=== PATIENT | male | born 1990 | race Two or more races ===

== ENCOUNTER → 2021-03-08 | Outpatient (CLI) | payer OTHER ==
[2021-03-08 18:28] LABS: BASO # 0.1 10^3/uL (0.0-0.2); BASO % 0.7 % (0.0-1.0); EOS # 0.1 10^3/uL (0.0-0.5); EOS % 1.9 % (0.0-3.0); HEMATOCRIT 47.6 % (42.0-52.0); LYMPH # 2.3 10^3/uL (1.5-5.0); LYMPH % 31.1 % (24.0-44.0); MEAN CORPUSCULAR HEMOGLOBIN 30.6 pg (27.0-33.0); MEAN CORPUSCULAR HGB CONC 33.6 g/dl (32.0-36.5); MONO # 0.5 10^3/uL (0.0-0.8); MONO % 6.9 % (2.0-8.0); NEUTROPHILS # 4.5 10^3/uL (1.5-8.5); NEUTROPHILS % 59.1 % (36.0-66.0); PLATELET COUNT, AUTOMATED 282 10^3/uL (150-450); RED BLOOD COUNT 5.23 10^6/uL (4.30-6.10); WHITE BLOOD COUNT 7.5 10^3/uL (4.0-10.0)
[2021-03-08 18:57] LABS: ALBUMIN 3.9 GM/DL (3.2-5.2); ALT/SGPT 40 U/L (12-78); BILIRUBIN,TOTAL 0.4 MG/DL (0.2-1.0); BLOOD UREA NITROGEN 12 MG/DL (7-18); CALCIUM LEVEL 9.1 MG/DL (8.5-10.1); CARBON DIOXIDE LEVEL 30 MEQ/L (21-32); CHLORIDE LEVEL 105 MEQ/L (98-107); CREATININE FOR GFR 1.09 MG/DL (0.70-1.30); GLOMERULAR FILTRATION RATE > 60.0 (>60); GLUCOSE, FASTING 62 MG/DL (70-100); SODIUM LEVEL 139 MEQ/L (136-145); TOTAL PROTEIN 7.2 GM/DL (6.4-8.2)
== END ==
LOC: M PLALAB 15:06
PROVIDERS: ATTEND Psychiatry & Neurology Neurology
DX: R56.9 Unspecified convulsions (principal)

== ENCOUNTER 2021-05-22 05:24 | Emergency (ER) | payer OTHER ==
--- OUTSIDE RECORDS SUMMARY | 2021-05-22 05:29 | CCD | Continuity of Care Document ---
Author Author Vanessa TRACY M.D. Organization Unknown Address [address] [place] [address] Phone [phone] Problems Active Problems Provider Date Seizure Fatou Tracy M.D. Onset: 11/28/2020 Social History Type Date Description Comments Sex Unknown Tobacco Use Start: Unknown Patient has never smoked Allergies, Adverse Reactions, Alerts Description No Known Drug Allergies Medications Active Medications SIG Qnty Indications Ordering Provide r Date Levetiracetam 750mg Tablets 1 by mouth twice a day Unknown Immunizations Description No Information Available Vital Signs Date Vital Result Comment 03/08/2021 2:40pm Respiratory Rate 12 /min Height 66 inches 5'6" Weight 160.00 lb BMI (Body Mass Index) 25.8 kg/m2 [place] Body Weight 142 lb 11/28/2020 8:29am Respiratory Rate 12 /min Height 66 inches 5'6" Weight 160.00 lb BMI (Body Mass Index) 25.8 kg/m2 [place] Body Weight 142 lb Results Description No Information Available Procedures Date Code Description Status 03/08/2021 79559 Office/Outpatient Established Mo d MDM 30-39 Min Completed 01/13/2021 27025 MRI Brain W/O Contrast Completed 01/13/2021 50823 MRI Brain W/O Contrast Completed 01/12/2021 22592 EEG Recording Awake & Asleep Com pleted 01/12/2021 78927 EEG Recording Awake & Asleep Com pleted 11/28/2020 08909 Office Consultation Level 5 Comp leted Medical Devices Description No Information Available Encounters Type Date Location Provider Dx Diagnosis Office Visit 03/08/2021 2:30p Main office - [place] Fatou huitron M.D. G40.309 Gen idiopathic epilepsy, not intractable , w/o stat epi Office Visit 11/28/2020 8:00a Main office - [place] Fatou huitron M.D. 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 Plan of Treatment No Information Available Functional Status Description No Information Available Mental Status Description No Information Available Referrals Refer to Dr Reason for Referral Status Appt Date Fatou Tracy M.D. Created [address] [place] [address] [phone] Fatou Tracy M.D. Created [address] [place] [address] [phone]
--- OUTSIDE RECORDS SUMMARY | 2021-05-22 05:29 | CCD ---
Author Author [facility] Organization [facility] Address Unknown Phone Unavailable Care Team Providers Care Branch Operations Coordinator Name Role Phone Mae Pisano MD Unavailable Unavailable Mae Pisano MD Unavailable Unavailable Mae Pisano MD Unavailable Unavailable Mae Pisano MD Unavailable Unavailable Mae Pisano MD Unavailable Unavailable Mae Pisano MD Unavailable Unavailable Mae Pisano MD Unavailable Unavailable Mae Pisano MD Unavailable Unavailable Mae Pisano MD Unavailable Unavailable Mae Pisano MD Unavailable Unavailable Mae Pisano MD Unavailable Unavailable Mae Pisano MD Unavailable Unavailable Mae Pisano MD Unavailable Unavailable Mae Pisano MD Unavailable Unavailable Mae Pisano MD Unavailable Unavailable Mae Pisano MD Unavailable Unavailable Mae Pisano MD Unavailable Unavailable Mae Pisano MD Unavailable Unavailable Mae Pisano MD Unavailable Unavailable Mae Pisano MD Unavailable Unavailable Mae Pisano MD Unavailable Unavailable Mae Pisano MD Unavailable Unavailable Mae Pisano MD Unavailable Unavailable Mae Pisano MD Unavailable Unavailable Mae Pisano MD Unavailable Unavailable Mae Pisano MD Unavailable Unavailable Mae Pisano MD Unavailable Unavailable Mae Pisano MD Unavailable Unavailable Mae Pisano MD Unavailable Unavailable Mae Pisano MD Unavailable Unavailable Mae Pisano MD Unavailable Unavailable Mae Pisano MD Unavailable Unavailable Mae Pisano MD Unavailable Unavailable Mae Pisano MD Unavailable Unavailable Mae Pisano MD Unavailable Unavailable Mae Pisano MD Unavailable Unavailable Mae Pisano MD Unavailable Unavailable Mae Pisano MD Unavailable Unavailable Mae Pisano MD Unavailable Unavailable Mae Pisano MD Unavailable Unavailable Mae Pisano MD Unavailable Unavailable Mae Pisano MD Unavailable Unavailable Mae Pisano MD Unavailable Unavailable Mae Pisano MD Unavailable Unavailable Mae Pisano MD Unavailable Unavailable Mae Pisano MD Unavailable Unavailable Mae Pisano MD Unavailable Unavailable Mae Pisano MD Unavailable Unavailable Mae Pisano MD Unavailable Unavailable Mae Pisano MD Unavailable Unavailable Mae Pisano MD Unavailable Unavailable Mae Pisano MD Unavailable Unavailable Mae Pisano MD Unavailable Unavailable Mae Pisano MD Unavailable Unavailable Mae Pisano MD Unavailable Unavailable Mae Pisano MD Unavailable Unavailable Mae Pisano MD Unavailable Unavailable Mae Pisano MD Unavailable Unavailable Mae Pisano MD Unavailable Unavailable Mae Pisano MD Unavailable Unavailable Mae Pisano MD Unavailable Unavailable Mae Pisano MD Unavailable Unavailable Mae Pisano MD Unavailable Unavailable Mae Pisano MD Unavailable Unavailable Mae Pisano MD Unavailable Unavailable Mae Pisano MD Unavailable Unavailable Mae Pisano MD Unavailable Unavailable Mae Pisaon MD Unavailable Unavailable Mae Pisano MD Unavailable Unavailable Mae Pisano MD Unavailable Unavailable Mae Pisano MD Unavailable Unavailable Mae Pisano MD Unavailable Unavailable Mae Pisano MD Unavailable Unavailable Mae Pisano MD Unavailable Unavailable Mae Pisano MD Unavailable Unavailable Mae Pisano MD Unavailable Unavailable Mae Pisano MD Unavailable Unavailable Mae Pisano MD Unavailable Unavailable Mae Pisano MD Unavailable Unavailable Re-disclosure Warning The records that you are about to access may contain information from federally-assisted alcohol or drug abuse programs. If such information is present, then the following federally mandated warning applies: This information has been disclosed to you from records protected by federal confidentiality rules (42 CFR part 2). The federal rules prohibit you from making any further disclosure of this information unless further disclosure is expressly permitted by the written consent of the person to whom it pertains or as otherwise permitted by 42 CFR part 2. A general authorization for the release of medical or other information is NOT sufficient for this purpose. The Federal rules restrict any use of the information to criminally investigate or prosecute any alcohol or drug abuse patient.The records that you are about to access may contain highly sensitive health information, the redisclosure of which is protected by Article 27-F of the [facility] Public Health law. If you continue you may have access to information: Regarding HIV / AIDS; Provided by facilities licensed or operated by the [facility] Office of Mental Health; or Provided by the [facility] Office for People With Developmental Disabilities. If such information is present, then the following [facility] mandated warning applies: This information has been disclosed to you from confidential records which are protected by state law. State law prohibits you from making any further disclosure of this information without the specific written consent of the person to whom it pertains, or as otherwise permitted by law. Any unauthorized further disclosure in violation of state law may result in a fine or long-term sentence or both. A general authorization for the release of medical or other information is NOT sufficient authorization for further disc losure. Encounters Encounter Providers Location Date Indications Data Source(s ) Outpatient Attender: Fatou Pisano MD [facility] 03/08/2021 02:30:00 PM EDT [facility] ([facility] Vasquez) Outpatient Attender: Fatou Pisano MD [facility] 11/28/2020 08:00:00 AM EDT [facility] ([facility] AGUSTIN harrell) Immunizations Vaccine Date Status Description Data Source(s) COVID-19 VACCINE Moderna 01/25/2021 12:00:00 AM EDT completed [facility] Vaccine Series Complete: YESThis Data wa s Submitted to [facility] Via [employer]. COVID-19 VACCINE Moderna 12/16/2020 12:00:00 AM EDT completed [place] Vaccine Series Complete: NOThis Data was Submitted to [facility] Via [employer]. Medications No Information Insurance Providers Payer name Policy type / Coverage type Policy ID Covered libertarian ID Covered libertarian's relationship to ramirez Policy Ramirez Plan Information [facility] [id number] Problems, Conditions, and Diagnoses Code Display Name Description Problem Type Effective Dates Data Source(s) [id number] Seizure Seizure Problem 11/28/2020 12:00:00 AM ED T [facility] ([facility], ) Surgeries/Procedures Procedure Description Date Indications Data Source(s) OFFICE OUTPATIENT VISIT 25 MINUTES 03/08/2021 12:00:00 AM EDT [facility] ([facility], ) MRI BRAIN BRAIN STEM W/O CONTRAST MATERIAL 01/13/2021 12:00:00 AM EDT [facility] ([facility], ) MRI BRAIN BRAIN STEM W/O CONTRAST MATERIAL 01/13/2021 12:00:00 AM EDT [facility] ([facility], ) ELECTROENCEPHALOGRAM W/REC AWAKE&ASLEEP 01/12/2021 12: 00:00 AM EDT [facility] ([facility], ) ELECTROENCEPHALOGRAM W/REC AWAKE&ASLEEP 01/12/2021 12: 00:00 AM EDT [facility] ([facility], ) OFFICE CONSULTATION NEW/ESTAB PATIENT 80 MIN 12:00:00 AM EDT [facility] ([facility], ) Results No Information Social History No Information Vital Signs ID Date Data Source UNK Name Value Range Interpretation Code Description Data Source(s) [place] body weight 142 [lb_av] 142 [lb_av] [facility] ([facility], ) Respiratory rate 12 /min 12 /min [facility] Body height 66 [in_i] 66 [in_i] [facility] ([facility], ) 5'6" Body weight 160.00 [lb_av] 160.00 [lb_av] [facility] ([facility], ) Body mass index (BMI) [Ratio] 25.8 kg/m2 25.8 k g/m2 [facility] Body mass index (BMI) [Ratio] 25.8 kg/m2 25.8 k g/m2 [facility] ([facility]) [place] body weight 142 [lb_av] 142 [lb_av] [facility] ([facility], ) Body weight 160.00 [lb_av] 160.00 [[facility]_av[facility] Respiratory rate 12 /min 12 /min [facility] ( [facility]) Body height 66 [in_i] 66 [in_i] [facility] ([facility]) 5'6"
--- OUTSIDE RECORDS SUMMARY | 2021-05-22 05:29 | CCD | Continuity of Care Document ---
Author Author Vanessa SHAIKH Organization Unknown Address [address] [place] [address] Phone [phone] Problems Active Problems Provider Date Seizure Fatou Pisano M.D. Onset: 11/28/2020 Social History Type Date Description Comments Sex Unknown Tobacco Use Start: Unknown Patient has never smoked Allergies, Adverse Reactions, Alerts Description No Known Drug Allergies Medications Active Medications SIG Qnty Indications Ordering Provide r Date Levetiracetam 750mg Tablets 1 by mouth twice a day Unknown Immunizations Description No Information Available Vital Signs Date Vital Result Comment 11/28/2020 8:29am Respiratory Rate 12 /min Height 66 inches 5'6" Weight 160.00 lb BMI (Body Mass Index) 25.8 kg/m2 [place] Body Weight 142 lb Results Description No Information Available Procedures Date Code Description Status 01/13/2021 17408 MRI Brain W/O Contrast Completed 01/13/2021 84647 MRI Brain W/O Contrast Completed 01/12/2021 13594 EEG Recording Awake & Asleep Com pleted 01/12/2021 93635 EEG Recording Awake & Asleep Com pleted 11/28/2020 39291 Office Consultation Level 5 Comp leted Medical Devices Description No Information Available Encounters Type Date Location Provider Dx Diagnosis Office Visit 11/28/2020 8:00a Main office - [place] Fatou huitron M.D. 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 Plan of Treatment Future Appointment(s):* 03/08/2021 2:30 pm - Fatou Pisano M.D. at Main office - [place] Functional Status Description No Information Available Mental Status Description No Information Available Referrals Refer to Reason for Referral Status Appt Date Fatou Pisano M.D. Created [address] [place] [address] [phone] Fatou Pisano M.D. Created [address] [place] [address] [phone]
--- OUTSIDE RECORDS SUMMARY | 2021-05-22 05:29 | CCD | Continuity of Care Document ---
Author Author Vanessa TRACY M.D. Organization Unknown Address [address] [place] [address] Phone [phone] Problems Active Problems Provider Date Seizure Fatou [...] lb BMI (Body Mass Index) 25.8 kg/m2 [place] Body Weight 142 lb 11/28/2020 8:29am Respiratory Rate 12 /min Height 66 inches 5'6" Weight 160.00 lb BMI (Body Mass Index) 25.8 kg/m2 [place] Body Weight 142 lb Results Description No Information Available Procedures Date Code Description Status 01/13/2021 69880 MRI Brain W/O Contrast Completed 01/13/2021 87735 MRI Brain W/O Contrast Completed 01/12/2021 12536 EEG Recording Awake & Asleep Com pleted 01/12/2021 03154 EEG Recording Awake & Asleep Com pleted 11/28/2020 82033 Office Consultation Level 5 Comp leted Medical Devices Description No Information Available Encounters Type Date Location Provider Dx Diagnosis Office Visit 11/28/2020 8:00a Main office - [place] Fatou huitron M.D. G40.309 Gen idiopathic epilepsy, [...] Date Fatou Tracy M.D. Created [address] [place] [address] [phone] Fatou Tracy M.D. Created [address] [place] [address] [phone]
[2021-05-22] MEDS ORDERED: LITH300C PO (05:57)
[2021-05-22 06:29] LABS: BASO # 0.1 10^3/uL (0.0-0.2); BASO % 0.7 % (0.0-1.0); EOS # 0.1 10^3/uL (0.0-0.5); EOS % 1.8 % (0.0-3.0); HEMOGLOBIN 15.7 g/dl (13.5-17.5); LYMPH # 1.2 10^3/uL (1.5-5.0); LYMPH % 16.9 % (24.0-44.0); MEAN CORPUSCULAR HEMOGLOBIN 30.9 pg (27.0-33.0); MEAN CORPUSCULAR HGB CONC 34.9 g/dl (32.0-36.5); MEAN CORPUSCULAR VOLUME 88.6 fl (80.0-96.0); MONO # 0.5 10^3/uL (0.0-0.8); MONO % 6.6 % (2.0-8.0); NEUTROPHILS # 5.3 10^3/uL (1.5-8.5); PLATELET COUNT, AUTOMATED 270 10^3/uL (150-450); RED BLOOD COUNT 5.08 10^6/uL (4.30-6.10); WHITE BLOOD COUNT 7.3 10^3/uL (4.0-10.0)
--- OUTSIDE RECORDS SUMMARY | 2021-05-22 06:46 | CCD ---
Author Author [facility] Organization [facility] Address Unknown Phone Unavailable Care Team Providers Care Raschel Knitting Machine Operator Name Role Phone Mae Pisano MD Unavailable [...] Unavailable Unavailable Mae Pisano MD Unavailable Unavailable Mea Pisano MD Unavailable Unavailable Mae Pisano MD [...] Unavailable Unavailable Mae Pisano MD Unavailable Unavailable aMe Pisano MD Unavailable Unavailable Mae Pisano MD [...] is protected by Article 27-F of the [facility] Public Health law. If you continue you may have access to information: Regarding HIV / AIDS; Provided by facilities licensed or operated by the [facility] Office of Mental Health; or Provided by the [facility] Office for People With Developmental Disabilities. If such information is present, then the following [facility] mandated warning applies: This information has [...] law may result in a fine or fci sentence or both. A general authorization for the release of medical or other information is NOT sufficient authorization for further disc losure. Encounters Encounter Providers Location Date Indications Data Source(s ) Outpatient Attender: Fatou Pisano MD [facility] 03/08/2021 02:30:00 PM EDT [facility] ([facility] Vasquez) Outpatient Attender: Fatou Pisano MD [facility] 11/28/2020 08:00:00 AM EDT [facility] ([facility] AGUSTIN harrell) Immunizations Vaccine Date Status Description Data Source(s) COVID-19 VACCINE Moderna 01/25/2021 12:00:00 AM EDT completed [facility] Vaccine Series Complete: YESThis Data wa s Submitted to [facility] Via [employer]. COVID-19 VACCINE Moderna 12/16/2020 12:00:00 AM EDT completed [place] Vaccine Series Complete: NOThis Data was Submitted to [facility] Via [employer]. Medications No Information Insurance Providers Payer name Policy type / Coverage type Policy ID Covered alliance party ID Covered alliance party's relationship to ramirez Policy Ramirez Plan Information [facility] ACTIVE DUT[facility] [id number] Problems, Conditions, and Diagnoses Code Display Name Description Problem Type Effective Dates Data Source(s) [id number] Seizure Seizure Problem 11/28/2020 12:00:00 AM ED T [facility] ([facility], ) Surgeries/Procedures Procedure Description Date Indications Data Source(s) OFFICE OUTPATIENT VISIT 25 MINUTES 03/08/2021 12:00:00 AM EDT [facility] ([facility], ) MRI BRAIN BRAIN STEM W/O CONTRAST MATERIAL 01/13/2021 12:00:00 AM EDT [facility] ([facility], ) MRI BRAIN BRAIN STEM W/O CONTRAST MATERIAL 01/13/2021 12:00:00 AM EDT [facility] ([facility], ) ELECTROENCEPHALOGRAM W/REC AWAKE&ASLEEP 01/12/2021 12: 00:00 AM EDT [facility] ([facility], ) ELECTROENCEPHALOGRAM W/REC AWAKE&ASLEEP 01/12/2021 12: 00:00 AM EDT [facility] ([facility], ) OFFICE CONSULTATION NEW/ESTAB PATIENT 80 MIN 12:00:00 AM EDT [facility] ([facility], ) Results No Information Social History No Information Vital Signs ID Date Data Source UNK Name Value Range Interpretation Code Description Data Source(s) [place] body weight 142 [lb_av] 142 [lb_av] [facility] ([facility] ) Respiratory rate 12 /min 12 /min [facility] Body height 66 [in_i] 66 [in_i] [facility] ([facility], ) 5'6" Body weight 160.00 [lb_av] 160.00 [lb_av] [facility] ([facility], ) Body mass index (BMI) [Ratio] 25.8 kg/m2 25.8 k g/m2 [facility] Body mass index (BMI) [Ratio] 25.8 kg/m2 25.8 k g/m2 [facility] ([facility]) [place] body weight 142 [lb_av] 142 [lb_av] [facility] ([facility], ) Body weight 160.00 [lb_av] 160.00 [facility]lb_av[facility] Respiratory rate 12 /min 12 /min [facility] ( [facility]) Body height 66 [in_i] 66 [in_i] [facility] ([facility]) 5'6"
[2021-05-22 06:59] LABS: ALBUMIN 3.6 GM/DL (3.2-5.2); ALT/SGPT 34 U/L (12-78); BILIRUBIN,DIRECT 0.1 MG/DL (0.0-0.2); BILIRUBIN,TOTAL 0.5 MG/DL (0.2-1.0); BLOOD UREA NITROGEN 10 MG/DL (7-18); CALCIUM LEVEL 9.1 MG/DL (8.5-10.1); CARBON DIOXIDE LEVEL 27 MEQ/L (21-32); CHLORIDE LEVEL 107 MEQ/L (98-107); CREATININE FOR GFR 1.27 MG/DL (0.70-1.30); GLOMERULAR FILTRATION RATE > 60.0 (>60); GLUCOSE, FASTING 107 MG/DL (70-100); LIPASE 75 U/L (73-393); LITHIUM LEVEL < 0.20 MEQ/L (0.60-1.20); POTASSIUM SERUM 4.7 MEQ/L (3.5-5.1); SODIUM LEVEL 140 MEQ/L (136-145); TOTAL PROTEIN 7.1 GM/DL (6.4-8.2)
[2021-05-22] MEDS ORDERED: KEPP1TAB PO (07:14)
[2021-05-22] MEDS ORDERED: levETIRAcetam INJection 1,000 MG in D5W 100 ML IV ONE (07:15)
--- NOTE | 2021-05-22 07:39 | REPVR ---
PROCEDURE INFORMATION: Exam: CT Head Without Contrast Exam date and time: 05/22/2021 7:28 AM Age: 31 years old Clinical indication: Other: Seizure unwiteness TECHNIQUE: Imaging protocol: Computed tomography of the head without contrast. Radiation optimization: All CT scans at this facility use at least one of these dose optimization techniques: automated exposure control; mA and/or kV adjustment per patient size (includes targeted exams where dose is matched to clinical indication); or iterative reconstruction. COMPARISON: No relevant prior studies available. FINDINGS: Brain: Normal. No hemorrhage. Unremarkable white matter. No mass effect. Cerebral ventricles: No ventriculomegaly. Paranasal sinuses: There is mucoperiosteal reaction in the ethmoid air cells. Mastoid air cells: Visualized mastoid air cells are well aerated. Bones/joints: No acute fracture. Soft tissues: Unremarkable. IMPRESSION: 1. Normal noncontrast CT of the brain. 2. If in etiology of a seizure disorder is not determined, a follow-up nonemergent MRI is recommended. Electronically signed by: Wilfred Pepe On 05/22/2021 07:38:41 AM
[2021-05-22] MEDS ORDERED: DEPA500T2 PO (08:52)
[2021-05-22 09:07] VITALS: BP 130/87
--- NOTE | 2021-05-22 19:27 | ECGEPIP ---
[facility] - ED Test Date: 2021-05-22 Pat Name: ORACIO PARKINSON Department: Room: - Gender: Male Safety Companion: JAYLENE : 1990 Requested By: TOMMY Berry Order Number: [id number] Reading MD: Timur Dela Cruz Measurements Intervals [place] Rate: 96 P: 61 UT: 154 QRS: 62 QRSD: 76 T: 37 QT: 342 QTc: 432 Interpretive Statements Normal sinus rhythm Delayed R wave progression Nonspecific ST T wave changes No prior ECG for comparison Electronically Signed on 05-22-2021 19:26:49 EST by Timur Dela Cruz
== END 2021-05-22 09:09 | disposition home or self-care (01) ==
LOC: M ED 05:24
DX: R56.9 Unspecified convulsions (principal)
CPT/HCPCS: 70450; 80048; 80076; 80178; 83605; 83690; 85025; 93005; 93041; 96374; 99284; J1953

== ENCOUNTER → 2022-01-22 | Outpatient (CLI) | payer OTHER ==
[~2022-01-22] MED LIST: DEPA500T2 PO; KEPP1TAB PO; LITH300C PO
[2022-01-22 17:43] LABS: BASO % 0.6 % (0.0-1.0); EOS # 0.1 10^3/uL (0.0-0.5); EOS % 0.8 % (0.0-3.0); HEMATOCRIT 46.9 % (42.0-52.0); HEMOGLOBIN 15.8 g/dl (13.5-17.5); LYMPH # 2.1 10^3/uL (1.5-5.0); LYMPH % 29.2 % (24.0-44.0); MEAN CORPUSCULAR HGB CONC 33.7 g/dl (32.0-36.5); MONO # 0.6 10^3/uL (0.0-0.8); MONO % 7.7 % (2.0-8.0); NEUTROPHILS # 4.5 10^3/uL (1.5-8.5); NEUTROPHILS % 61.4 % (36.0-66.0); PLATELET COUNT, AUTOMATED 290 10^3/uL (150-450); RED BLOOD COUNT 5.27 10^6/uL (4.30-6.10); WHITE BLOOD COUNT 7.3 10^3/uL (4.0-10.0)
[2022-01-22 20:25] LABS: ALBUMIN 4.2 GM/DL (3.2-5.2); ALT/SGPT 27 U/L (12-78); BILIRUBIN,TOTAL 0.8 MG/DL (0.2-1.0); BLOOD UREA NITROGEN 12 MG/DL (7-18); CALCIUM LEVEL 9.7 MG/DL (8.5-10.1); CARBON DIOXIDE LEVEL 30 MEQ/L (21-32); CHLORIDE LEVEL 106 MEQ/L (98-107); CREATININE FOR GFR 1.14 MG/DL (0.70-1.30); GLOMERULAR FILTRATION RATE > 60.0 (>60); GLUCOSE, FASTING 84 MG/DL (70-100); POTASSIUM SERUM 4.4 MEQ/L (3.5-5.1); SODIUM LEVEL 139 MEQ/L (136-145); TOTAL PROTEIN 7.1 GM/DL (6.4-8.2)
== END ==
LOC: M PLALAB 15:45
PROVIDERS: ATTEND Psychiatry & Neurology Neurology
DX: R56.9 Unspecified convulsions (principal)